=== PATIENT | female | born 1965 | race African-American/Black ===

== ENCOUNTER 2017-11-29 14:54 | Inpatient (IN) ==
[2017-11-29] MEDS ORDERED: SODIUM CHLORIDE 0.9% 1,000 ML IV PRN ×2 (16:54→18:23)
[2017-11-29 17:43] LABS: Basophils % 0.2 % (0.0-0.8); Eosinophils # 0.1 10*3/uL (0.0-0.87); Eosinophils % 1.6 % (0.00-10.9); Hematocrit 20.6 VOL% (35.7-47.0); Immature Granulocytes % 0.5 %; Immature Granulocytes Absolute 0.04 #; Lymphocytes # 1.7 10*3/uL (1.4-4.0); Mean Corpuscular HGB Conc 27.7 GM/DL (32-36); Mean Corpuscular Hemoglobin 19 PG (27-34); Mean Corpuscular Volume 69.1 FL (87-102); Mean Platelet Volume 11.2 FL (9.6-12.0); Monocytes # 0.5 10*3/uL (0.11-0.8); Monocytes % 5.4 % (1.7-12.7); NRBC # 0.03 10*3/uL; Neutrophils # 6.3 10*3/uL (1.4-7.4); Neutrophils % 72.3 % (38.7-73.9); Platelet Count 402 T/CUMM (130-400); Red Blood Count 2.98 MC/CUMM (3.8-5.5); Red Cell Distribution Width 17.7 % (9.3-17.3); White Blood Count 8.7 T/CUMM (4-12)
[2017-11-29 17:59] LABS: Hemoglobin 5.7 GM/DL (12.0-16.0)
[2017-11-29 18:07] LABS: Alanine Aminotransferase < 6 U/L (13-56); Albumin 3.2 G/DL (3.4-5.0); Alkaline Phosphatase 95 U/L (45-117); Aspartate Amino Transferase 6 U/L (0-37); Blood Urea Nitrogen 17 MG/DL (7-18); Calcium 8.4 MG/DL (8.5-10.1); Glucose 145 MG/DL (74-106); Osmolality,Calculated 279.7 MOS/KG (273-304); Potassium 4.1 MMOL/L (3.5-5.1); Sodium 138 MMOL/L (136-145); Total Protein 7.3 G/DL (6.4-8.3)
[2017-11-29] MEDS ORDERED: ONDANSETRON 4 MG/2 ML VIAL IV PRN (18:20)
[2017-11-29] MEDS ORDERED: ACETAMINOPHEN 325 MG TABLET PO PRN (18:20)
[2017-11-29] MEDS ORDERED: SODIUM CHLORIDE 0.9% 1,000 ML IV SCH (18:30)
[2017-11-29] MEDS ORDERED: oxyCODONE/ACETAMINOPHEN 5-325 MG TABLET PO PRN (18:41)
[2017-11-29 21:08] LABS: % Iron Saturation 4.6 % (18-50); Ferritin 4.1 ng/ml (8-252)
[2017-11-29] MEDS: PANTOPRAZOLE 40 MG VIAL IV SCH (22:03)
[2017-11-29] MEDS: GLIMEPIRIDE 4 MG TABLET PO SCH (22:03)
[2017-11-29] MEDS: INSULIN GLARGINE 100 UNIT/ML SUBCUT SCH (22:03)
[2017-11-29] MEDS: ATORVASTATIN 20 MG TABLET PO SCH (22:03)
[2017-11-29] MEDS: CETIRIZINE 10 MG TABLET PO SCH (22:03)
[2017-11-29] MEDS: MAGNESIUM OXIDE 400 MG TABLET PO SCH (22:03)
[2017-11-29] MEDS: CARVEDILOL 6.25 MG TABLET PO SCH (22:04)
[2017-11-30 07:26] LABS: Basophils % 0.4 % (0.0-0.8); Eosinophils # 0.2 10*3/uL (0.0-0.87); Eosinophils % 2.4 % (0.00-10.9); Hematocrit 22.2 VOL% (35.7-47.0); Hemoglobin 6.5 GM/DL (12.0-16.0); Immature Granulocytes % 0.4 %; Immature Granulocytes Absolute 0.03 #; Lymphocytes # 1.7 10*3/uL (1.4-4.0); Lymphocytes % 22.7 % (21.3-54.2); Mean Corpuscular HGB Conc 29.3 GM/DL (32-36); Mean Corpuscular Hemoglobin 21 PG (27-34); Mean Corpuscular Volume 71.8 FL (87-102); Monocytes # 0.6 10*3/uL (0.11-0.8); Monocytes % 7.8 % (1.7-12.7); NRBC # 0.03 10*3/uL; Neutrophils # 4.9 10*3/uL (1.4-7.4); Neutrophils % 66.3 % (38.7-73.9); Platelet Count 346 T/CUMM (130-400); Red Blood Count 3.09 MC/CUMM (3.8-5.5); Red Cell Distribution Width 19.2 % (9.3-17.3); White Blood Count 7.4 T/CUMM (4-12)
[2017-11-30 07:33] LABS: PT Patient Result 10.1 SECS
[2017-11-30 08:04] LABS: Calcium 8.6 MG/DL (8.5-10.1); Magnesium 2.5 MG/DL (1.8-2.4); Osmolality,Calculated 281.3 MOS/KG (273-304); Potassium 4.2 MMOL/L (3.5-5.1); Thyroid Stimulating Hormone 1.7 uIU/ml (0.358-3.74)
[2017-11-30] MEDS: PANTOPRAZOLE 40 MG VIAL IV SCH ×2 (09:57→21:42)
[2017-11-30] MEDS: MAGNESIUM OXIDE 400 MG TABLET PO SCH ×2 (10:47→21:42)
[2017-11-30] MEDS: CYANOCOBALAMIN 500 MCG TABLET PO SCH (10:47)
[2017-11-30] MEDS: SPIRONOLACTONE 25 MG TABLET PO SCH (10:47)
[2017-11-30] MEDS: GLIMEPIRIDE 4 MG TABLET PO SCH ×2 (10:47→21:42)
[2017-11-30] MEDS: CHOLECALCIFEROL 5,000 UNIT TABLET PO SCH (10:48)
[2017-11-30] MEDS: CARVEDILOL 6.25 MG TABLET PO SCH ×2 (10:48→16:22)
[2017-11-30] MEDS: hydroCHLOROthiazide 25 MG TABLET PO SCH ×2 (10:48→16:22)
[2017-11-30] MEDS: ASCORBIC ACID 500 MG TABLET PO SCH (10:48)
[2017-11-30] MEDS ORDERED: FUROSEMIDE 40 MG/4 ML VIAL IV ONE (11:01)
[2017-11-30 15:34] LABS: Apearance,Urine Slightly Hazy (Clear); Bilirubin,Urine Negative (Negative); Blood, Urine Negative (Negative); Glucose,Urine (UA) Negative (Negative); Ketones,Urine Negative (Negative); Nitrite,Urine Negative (Negative); Protein,Urine Negative; RBC,Urine 2 /HPF (0-4); Squamous Epithelial Cell,Urine Occasional /HPF (0-10); Urine Color Yellow (Yellow); Urine Specific Gravity 1.011 (1.001-1.035); Urine Urobilinogen < 2.0 EU/DL (0.2-1.0); WBC,Urine <1 /HPF (0-6)
[2017-11-30 21:21] LABS: Hematocrit 29.3 VOL% (35.7-47.0); Hemoglobin 8.5 GM/DL (12.0-16.0)
[2017-11-30] MEDS: CETIRIZINE 10 MG TABLET PO SCH (21:42)
[2017-11-30] MEDS: LISINOPRIL 5 MG TABLET PO SCH (21:42)
[2017-11-30] MEDS: ATORVASTATIN 20 MG TABLET PO SCH (21:42)
[2017-11-30] MEDS: INSULIN GLARGINE 100 UNIT/ML SUBCUT SCH (22:08)
[2017-12-01 05:04] LABS: Basophils % 0.5 % (0.0-0.8); Eosinophils # 0.4 10*3/uL (0.0-0.87); Eosinophils % 4.6 % (0.00-10.9); Hematocrit 29.6 VOL% (35.7-47.0); Hemoglobin 8.8 GM/DL (12.0-16.0); Immature Granulocytes % 0.4 %; Immature Granulocytes Absolute 0.03 #; Lymphocytes % 23.4 % (21.3-54.2); Mean Corpuscular HGB Conc 29.7 GM/DL (32-36); Mean Corpuscular Hemoglobin 22 PG (27-34); Mean Corpuscular Volume 74.7 FL (87-102); Monocytes # 0.6 10*3/uL (0.11-0.8); Monocytes % 7.4 % (1.7-12.7); NRBC # 0.03 10*3/uL; Neutrophils # 5.4 10*3/uL (1.4-7.4); Neutrophils % 63.7 % (38.7-73.9); Platelet Count 367 T/CUMM (130-400); Red Blood Count 3.96 MC/CUMM (3.8-5.5); Red Cell Distribution Width 19.1 % (9.3-17.3); White Blood Count 8.4 T/CUMM (4-12)
[2017-12-01 05:25] LABS: Calcium 8.5 MG/DL (8.5-10.1); Osmolality,Calculated 274.5 MOS/KG (273-304)
[2017-12-01] MEDS ORDERED: DEXTROSE 50% 25 GM/50 ML VIAL IV ONE (05:44)
[2017-12-01] MEDS ORDERED: DEXTROSE 50% 25 GM/50 ML VIAL IV PRN (05:48)
[2017-12-01] MEDS ORDERED: POLYETHYLENE GLYCOL POWDER 17 GM PACK PO SCH (09:00)
[2017-12-01] MEDS: GLIMEPIRIDE 4 MG TABLET PO SCH ×2 (10:46→21:37)
[2017-12-01] MEDS: CHOLECALCIFEROL 5,000 UNIT TABLET PO SCH (10:46)
[2017-12-01] MEDS: ASCORBIC ACID 500 MG TABLET PO SCH (10:47)
[2017-12-01] MEDS: CYANOCOBALAMIN 500 MCG TABLET PO SCH (10:47)
[2017-12-01] MEDS: MAGNESIUM OXIDE 400 MG TABLET PO SCH ×2 (10:47→21:37)
[2017-12-01] MEDS: SPIRONOLACTONE 25 MG TABLET PO SCH (10:47)
[2017-12-01] MEDS: hydroCHLOROthiazide 25 MG TABLET PO SCH ×2 (10:48→16:01)
[2017-12-01] MEDS: PANTOPRAZOLE 40 MG VIAL IV SCH ×2 (10:48→21:38)
[2017-12-01] MEDS: CARVEDILOL 6.25 MG TABLET PO SCH ×2 (10:48→16:01)
[2017-12-01] MEDS: LISINOPRIL 5 MG TABLET PO SCH ×2 (10:48→21:37)
[2017-12-01] MEDS ORDERED: PROPOFOL 200 MG/20 ML VIAL IV ONE (13:00)
[2017-12-01] MEDS ORDERED: LIDOCAINE 2% 5 ML VIAL ONE (13:00)
[2017-12-01] MEDS ORDERED: POLYETHYLENE GLYCOL POWDER 255 GM BOTTLE PO ONE (18:00)
[2017-12-01] MEDS ORDERED: MAGNESIUM CITRATE 300 ML BOTTLE PO ONE (21:00)
[2017-12-01] MEDS: ATORVASTATIN 20 MG TABLET PO SCH (21:37)
[2017-12-01] MEDS: CETIRIZINE 10 MG TABLET PO SCH (21:38)
[2017-12-01] MEDS: INSULIN GLARGINE 100 UNIT/ML SUBCUT SCH (22:01)
[2017-12-02 05:19] LABS: Basophils % 0.5 % (0.0-0.8); Eosinophils # 0.3 10*3/uL (0.0-0.87); Eosinophils % 3.7 % (0.00-10.9); Hematocrit 31.8 VOL% (35.7-47.0); Hemoglobin 9.6 GM/DL (12.0-16.0); Immature Granulocytes % 0.2 %; Immature Granulocytes Absolute 0.02 #; Lymphocytes # 1.6 10*3/uL (1.4-4.0); Lymphocytes % 18.4 % (21.3-54.2); Mean Corpuscular HGB Conc 30.2 GM/DL (32-36); Mean Corpuscular Hemoglobin 22 PG (27-34); Mean Corpuscular Volume 73.4 FL (87-102); Mean Platelet Volume 12.1 FL (9.6-12.0); Monocytes # 0.5 10*3/uL (0.11-0.8); Monocytes % 6.4 % (1.7-12.7); Neutrophils % 70.8 % (38.7-73.9); Platelet Count 405 T/CUMM (130-400); Red Blood Count 4.33 MC/CUMM (3.8-5.5); Red Cell Distribution Width 19.6 % (9.3-17.3); White Blood Count 8.5 T/CUMM (4-12)
[2017-12-02] MEDS ORDERED: IRON DEXTRAN 25 MG in SYRINGE 1 EACH IV ONE (09:30)
[2017-12-02] MEDS: LISINOPRIL 5 MG TABLET PO SCH (09:53)
[2017-12-02] MEDS: ASCORBIC ACID 500 MG TABLET PO SCH (09:53)
[2017-12-02] MEDS: SPIRONOLACTONE 25 MG TABLET PO SCH (09:53)
[2017-12-02] MEDS: MAGNESIUM OXIDE 400 MG TABLET PO SCH (09:53)
[2017-12-02] MEDS: CYANOCOBALAMIN 500 MCG TABLET PO SCH (09:53)
[2017-12-02] MEDS: CHOLECALCIFEROL 5,000 UNIT TABLET PO SCH (09:53)
[2017-12-02] MEDS: hydroCHLOROthiazide 25 MG TABLET PO SCH ×2 (09:53→15:29)
[2017-12-02] MEDS: PANTOPRAZOLE 40 MG VIAL IV SCH (09:53)
[2017-12-02] MEDS: CARVEDILOL 6.25 MG TABLET PO SCH ×2 (09:53→17:45)
[2017-12-02] MEDS: GLIMEPIRIDE 4 MG TABLET PO SCH (09:59)
[2017-12-02] MEDS ORDERED: SODIUM CHLORIDE 0.9% IV ONE (11:00)
[2017-12-02] MEDS ORDERED: IRON DEXTRAN IV ONE (11:00)
[2017-12-02] MEDS ORDERED: LIDOCAINE 100 MG/5 ML SYRINGE ONE (15:52)
[2017-12-02] MEDS ORDERED: ETOMIDATE 20 MG/10 ML VIAL IV ONE (15:52)
[2017-12-02] MEDS ORDERED: PROPOFOL 200 MG/20 ML VIAL IV ONE (15:52)
[2017-12-02 15:59] VITALS: BP 124/56
== END 2017-12-02 20:05 | disposition home or self-care (01) | DRG 253 ==
LOC: N.ED 14:54 → N.EDINP 16:59 → SUATTDRO 16:59 → N.TELES 19:47
PROVIDERS: ATTEND Internal Medicine Nephrology

== ENCOUNTER 2019-04-02 15:49 | Inpatient (IN) ==
[2019-04-02] MEDS ORDERED: ALBUTEROL/IPRATROPIUM 3 ML NEB RESP TX STA (16:27)
[2019-04-02] MEDS ORDERED: FUROSEMIDE 100 MG/10 ML VIAL IV STA (16:27)
[2019-04-02] MEDS ORDERED: ONDANSETRON 4 MG/2 ML VIAL IV STA (16:27)
[2019-04-02 17:05] LABS: Basophils % 0.5 % (0.0-0.8); Eosinophils # 0.1 10*3/uL (0.0-0.87); Eosinophils % 2.2 % (0.00-10.9); Hematocrit 34.1 VOL% (35.7-47.0); Hemoglobin 9.9 GM/DL (12.0-16.0); Immature Granulocytes % 0.5 %; Immature Granulocytes Absolute 0.03 #; Lymphocytes # 0.8 10*3/uL (1.4-4.0); Lymphocytes % 13.4 % (21.3-54.2); Monocytes % 6.6 % (1.7-12.7); Neutrophils % 76.8 % (38.7-73.9); Platelet Count 229 T/CUMM (130-400); Red Blood Count 4.21 MC/CUMM (3.8-5.5); Red Cell Distribution Width 17.9 % (9.3-17.3)
[2019-04-02 17:08] LABS: PT Patient Result 10.5 SECS
[2019-04-02 17:12] LABS: Apearance,Urine CLEAR (Clear); Bilirubin,Urine Negative (Negative); Blood, Urine Negative (Negative); Glucose,Urine (UA) Negative (Negative); Hyaline Casts,Urine 1 /LPF (0-3); Ketones,Urine Negative (Negative); Nitrite,Urine Negative (Negative); Protein,Urine Negative; RBC,Urine 2 /HPF (0-4); Squamous Epithelial Cell,Urine Occasional /HPF (0-10); Urine Color Straw (Yellow); Urine Specific Gravity 1.006 (1.001-1.035); Urine Urobilinogen < 2.0 EU/DL (0.2-1.0); WBC,Urine <1 /HPF (0-6)
[2019-04-02 17:21] LABS: Albumin 3.5 G/DL (3.4-5.0); Osmolality,Calculated 286.5 MOS/KG (273-304); Total Protein 7.8 G/DL (6.4-8.3)
[2019-04-02] MEDS ORDERED: GLUCAGON 1 MG VIAL IM PRN (18:36)
[2019-04-02] MEDS ORDERED: DEXTROSE 10% 250 ML BAG IV PRN (18:36)
[2019-04-02] MEDS ORDERED: LACTULOSE 20 GM/30 ML UDCUP PO PRN (18:36)
[2019-04-02] MEDS ORDERED: ACETAMINOPHEN 325 MG TABLET PO PRN (18:36)
[2019-04-02] MEDS ORDERED: DOCUSATE SODIUM 100 MG CAPSULE PO PRN (18:36)
[2019-04-02] MEDS ORDERED: MINOXIDIL 10 MG TABLET PO SCH (21:00)
[2019-04-02 21:08] LABS: Troponin I 0.015 NG/ML (0.00-0.045)
[2019-04-02] MEDS: ATORVASTATIN 20 MG TABLET PO SCH (22:42)
[2019-04-02] MEDS: CARVEDILOL 6.25 MG TABLET PO SCH (22:43)
[2019-04-02] MEDS: MAGNESIUM OXIDE 400 MG TABLET PO SCH (22:43)
[2019-04-02] MEDS: INSULIN GLARGINE 100 UNIT/ML SUBCUT SCH (22:44)
[2019-04-02] MEDS: FUROSEMIDE 40 MG/4 ML VIAL IV SCH (22:45)
[2019-04-02] MEDS: ENOXAPARIN 40 MG/0.4 ML SYRINGE SUBCUT SCH (22:49)
[2019-04-03 01:03] LABS: Calcium 8.3 MG/DL (8.5-10.1); Osmolality,Calculated 293.3 MOS/KG (273-304)
[2019-04-03 01:07] LABS: Troponin I < 0.015 NG/ML (0.00-0.045)
[2019-04-03 01:09] LABS: Basophils % 0.4 % (0.0-0.8); Eosinophils # 0.1 10*3/uL (0.0-0.87); Eosinophils % 2.4 % (0.00-10.9); Hematocrit 30.5 VOL% (35.7-47.0); Immature Granulocytes % 0.4 %; Immature Granulocytes Absolute 0.02 #; Lymphocytes % 20.2 % (21.3-54.2); Mean Corpuscular HGB Conc 29.5 GM/DL (32-36); Mean Corpuscular Volume 81.6 FL (87-102); Mean Platelet Volume 11.5 FL (9.6-12.0); Monocytes % 8.9 % (1.7-12.7); Neutrophils % 67.7 % (38.7-73.9); Platelet Count 226 T/CUMM (130-400); Red Blood Count 3.74 MC/CUMM (3.8-5.5); Red Cell Distribution Width 17.8 % (9.3-17.3)
[2019-04-03] MEDS: INSULIN REGULAR 100 UNIT/ML SUBCUT SCH ×5 (01:22→22:34)
[2019-04-03] MEDS ORDERED: PNEUMOCOCCAL VACCINE (23 VALENT) 0.5 ML VIAL IM ONE (09:00)
[2019-04-03] MEDS: FUROSEMIDE 40 MG/4 ML VIAL IV SCH ×2 (09:04→21:29)
[2019-04-03] MEDS: INSULIN GLARGINE 100 UNIT/ML SUBCUT SCH ×2 (09:04→22:34)
[2019-04-03] MEDS: CHOLECALCIFEROL 5,000 UNIT TABLET PO SCH (09:05)
[2019-04-03] MEDS: MAGNESIUM OXIDE 400 MG TABLET PO SCH ×2 (09:05→21:30)
[2019-04-03] MEDS: ASCORBIC ACID 500 MG TABLET PO SCH (09:05)
[2019-04-03] MEDS: PANTOPRAZOLE 40 MG TABLET PO SCH (09:05)
[2019-04-03] MEDS: CYANOCOBALAMIN 500 MCG TABLET PO SCH (09:05)
[2019-04-03] MEDS: CARVEDILOL 6.25 MG TABLET PO SCH ×2 (09:05→19:06)
[2019-04-03] MEDS: ASPIRIN EC 81 MG TABLET PO SCH (09:05)
[2019-04-03] MEDS: POTASSIUM CHLORIDE 20 MEQ TABLET PO SCH (09:05)
[2019-04-03] MEDS: ATORVASTATIN 20 MG TABLET PO SCH (21:30)
[2019-04-03] MEDS: ENOXAPARIN 40 MG/0.4 ML SYRINGE SUBCUT SCH (21:30)
[2019-04-04 05:13] LABS: Basophils % 0.5 % (0.0-0.8); Eosinophils # 0.1 10*3/uL (0.0-0.87); Eosinophils % 3.3 % (0.00-10.9); Hematocrit 30.8 VOL% (35.7-47.0); Immature Granulocytes % 0.2 %; Immature Granulocytes Absolute 0.01 #; Lymphocytes # 1.2 10*3/uL (1.4-4.0); Mean Corpuscular HGB Conc 29.2 GM/DL (32-36); Mean Corpuscular Volume 81.3 FL (87-102); Mean Platelet Volume 11.3 FL (9.6-12.0); Monocytes % 9.6 % (1.7-12.7); Neutrophils % 58.4 % (38.7-73.9); Platelet Count 232 T/CUMM (130-400); Red Blood Count 3.79 MC/CUMM (3.8-5.5); Red Cell Distribution Width 17.8 % (9.3-17.3); White Blood Count 4.3 T/CUMM (4-12)
[2019-04-04 05:39] LABS: Osmolality,Calculated 288.1 MOS/KG (273-304)
[2019-04-04] MEDS: INSULIN REGULAR 100 UNIT/ML SUBCUT SCH ×4 (08:34→21:34)
[2019-04-04] MEDS: INSULIN GLARGINE 100 UNIT/ML SUBCUT SCH ×2 (10:09→21:34)
[2019-04-04] MEDS: CARVEDILOL 6.25 MG TABLET PO SCH (10:10)
[2019-04-04] MEDS: CHOLECALCIFEROL 5,000 UNIT TABLET PO SCH (10:10)
[2019-04-04] MEDS: PANTOPRAZOLE 40 MG TABLET PO SCH (10:10)
[2019-04-04] MEDS: POTASSIUM CHLORIDE 20 MEQ TABLET PO SCH (10:10)
[2019-04-04] MEDS: FUROSEMIDE 40 MG/4 ML VIAL IV SCH ×2 (10:11→21:26)
[2019-04-04] MEDS: CYANOCOBALAMIN 500 MCG TABLET PO SCH (10:11)
[2019-04-04] MEDS: ASPIRIN EC 81 MG TABLET PO SCH (10:11)
[2019-04-04] MEDS: ASCORBIC ACID 500 MG TABLET PO SCH (10:12)
[2019-04-04] MEDS: MAGNESIUM OXIDE 400 MG TABLET PO SCH ×2 (10:12→21:26)
[2019-04-04] MEDS: CARVEDILOL 12.5 MG TABLET PO SCH (16:59)
[2019-04-04] MEDS: ATORVASTATIN 20 MG TABLET PO SCH (21:26)
[2019-04-04] MEDS: ENOXAPARIN 40 MG/0.4 ML SYRINGE SUBCUT SCH (21:34)
[2019-04-05 05:31] LABS: Basophils % 0.5 % (0.0-0.8); Eosinophils # 0.2 10*3/uL (0.0-0.87); Eosinophils % 4.9 % (0.00-10.9); Hematocrit 32.2 VOL% (35.7-47.0); Hemoglobin 9.4 GM/DL (12.0-16.0); Immature Granulocytes % 0.2 %; Immature Granulocytes Absolute 0.01 #; Lymphocytes # 1.3 10*3/uL (1.4-4.0); Mean Corpuscular HGB Conc 29.2 GM/DL (32-36); Mean Corpuscular Volume 81.3 FL (87-102); Mean Platelet Volume 11.4 FL (9.6-12.0); Monocytes % 10.8 % (1.7-12.7); Neutrophils % 52.6 % (38.7-73.9); Platelet Count 276 T/CUMM (130-400); Red Blood Count 3.96 MC/CUMM (3.8-5.5); Red Cell Distribution Width 17.6 % (9.3-17.3); White Blood Count 4.1 T/CUMM (4-12)
[2019-04-05 06:04] LABS: Calcium 8.8 MG/DL (8.5-10.1)
[2019-04-05] MEDS: INSULIN REGULAR 100 UNIT/ML SUBCUT SCH ×4 (08:12→21:30)
[2019-04-05] MEDS: CHOLECALCIFEROL 5,000 UNIT TABLET PO SCH (09:53)
[2019-04-05] MEDS: MAGNESIUM OXIDE 400 MG TABLET PO SCH (09:53)
[2019-04-05] MEDS: ASPIRIN EC 81 MG TABLET PO SCH (09:53)
[2019-04-05] MEDS: CARVEDILOL 12.5 MG TABLET PO SCH (09:53)
[2019-04-05] MEDS: CYANOCOBALAMIN 500 MCG TABLET PO SCH (09:53)
[2019-04-05] MEDS: POTASSIUM CHLORIDE 20 MEQ TABLET PO SCH (09:54)
[2019-04-05] MEDS: PANTOPRAZOLE 40 MG TABLET PO SCH (09:54)
[2019-04-05] MEDS: ASCORBIC ACID 500 MG TABLET PO SCH ×2 (09:54→21:43)
[2019-04-05] MEDS: FUROSEMIDE 40 MG/4 ML VIAL IV SCH ×2 (09:54→22:55)
[2019-04-05] MEDS: INSULIN GLARGINE 100 UNIT/ML SUBCUT SCH ×2 (09:59→21:30)
[2019-04-05] MEDS ORDERED: POTASSIUM CHLORIDE 20 MEQ TABLET PO ONE (11:04)
[2019-04-05] MEDS ORDERED: CARVEDILOL 12.5 MG TABLET PO ONE (11:23)
[2019-04-05] MEDS: ATORVASTATIN 20 MG TABLET PO SCH (21:42)
[2019-04-05] MEDS: ENOXAPARIN 40 MG/0.4 ML SYRINGE SUBCUT SCH (21:42)
[2019-04-05] MEDS: CARVEDILOL 25 MG TABLET PO SCH (21:43)
[2019-04-06] MEDS: MAGNESIUM OXIDE 400 MG TABLET PO SCH ×2 (01:45→09:38)
[2019-04-06 05:11] LABS: Basophils % 0.7 % (0.0-0.8); Eosinophils # 0.2 10*3/uL (0.0-0.87); Eosinophils % 3.7 % (0.00-10.9); Hematocrit 31.1 VOL% (35.7-47.0); Hemoglobin 9.5 GM/DL (12.0-16.0); Immature Granulocytes % 0.2 %; Immature Granulocytes Absolute 0.01 #; Lymphocytes # 1.3 10*3/uL (1.4-4.0); Lymphocytes % 31.3 % (21.3-54.2); Mean Corpuscular HGB Conc 30.5 GM/DL (32-36); Mean Corpuscular Volume 81.2 FL (87-102); Mean Platelet Volume 12.4 FL (9.6-12.0); Neutrophils % 55.1 % (38.7-73.9); Platelet Count 258 T/CUMM (130-400); Red Blood Count 3.83 MC/CUMM (3.8-5.5); Red Cell Distribution Width 17.5 % (9.3-17.3)
[2019-04-06 05:26] LABS: Calcium 8.4 MG/DL (8.5-10.1); Osmolality,Calculated 287.4 MOS/KG (273-304)
[2019-04-06 05:34] LABS: Calcium 8.4 MG/DL (8.5-10.1); Osmolality,Calculated 287.4 MOS/KG (273-304)
[2019-04-06 08:27] VITALS: BP 163/63
[2019-04-06] MEDS: PANTOPRAZOLE 40 MG TABLET PO SCH (09:37)
[2019-04-06] MEDS: ASPIRIN EC 81 MG TABLET PO SCH (09:37)
[2019-04-06] MEDS: CHOLECALCIFEROL 5,000 UNIT TABLET PO SCH (09:37)
[2019-04-06] MEDS: CYANOCOBALAMIN 500 MCG TABLET PO SCH (09:37)
[2019-04-06] MEDS: CARVEDILOL 25 MG TABLET PO SCH (09:37)
[2019-04-06] MEDS: INSULIN REGULAR 100 UNIT/ML SUBCUT SCH ×3 (09:38→17:41)
[2019-04-06] MEDS: POTASSIUM CHLORIDE 20 MEQ TABLET PO SCH (09:38)
[2019-04-06] MEDS: INSULIN GLARGINE 100 UNIT/ML SUBCUT SCH (09:38)
[2019-04-06] MEDS: ASCORBIC ACID 500 MG TABLET PO SCH (09:38)
[2019-04-06] MEDS: FUROSEMIDE 40 MG/4 ML VIAL IV SCH (09:47)
[2019-04-06 10:09] LABS: % Iron Saturation 14.2 % (18-50)
[2019-04-06] MEDS ORDERED: FERROUS SULFATE 325 MG TABLET PO SCH (10:30)
[2019-04-06] MEDS ORDERED: amLODIPine 5 MG TABLET PO SCH (11:00)
[2019-04-06] MEDS ORDERED: FUROSEMIDE 40 MG TABLET PO SCH (16:00)
== END 2019-04-06 17:26 | disposition home or self-care (01) | DRG 194 ==
LOC: EDUNIT# → EDBD → N.ED 15:49 → SUATTDRO 18:35 → N.EDINP 18:35 → N.TELES 19:34
PROVIDERS: ADMIT Hospitalist; ATTEND Internal Medicine